=== PATIENT | female | born 2000 | race Caucasian/White ===

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

== ENCOUNTER 2020-07-30 19:11 | Emergency (ER) | payer OTHER, SELFPAY ==
[2020-07-30 19:15] VITALS: BP 115/72; PULSE 88; RESP 18; TEMP 36.6; O2SAT 99
--- NOTE | 2020-07-30 19:21 | ED.ABDPAIN ---
HPI - Abdominal Pain General Chief Complaint: Nausea/Vomiting/Diarrhea Stated Complaint: abdo pain nausea Time Seen by Provider: 07/30/20 19:21 Source: patient and RN notes reviewed Mode of arrival: ambulatory Limitations: no limitations History of Present Illness HPI narrative: 20-year-old female presents to the [facility] with 2 days of intermittent nausea and suprapubic abdominal pain. Patient states that she has had diarrhea and abdominal pain since she was approximately 16 years old, states her mom is supposed to have her follow-up with a GI doctor but they have not done so in the last 4 years. Denies any pain at this time. Denies any urinary symptoms. Denies any chance of . Related Data Home Medications Medication Instructions Recorded Confirmed buspirone 5 mg PO DAILY 07/30/20 07/30/20 propranolol 10 mg PO BID 07/30/20 07/30/20 Allergies Allergy/AdvReac Type Severity Reaction Status Date / Time No Known Allergies Allergy Verified 05/01/19 16:20 Review of Systems Review of Systems: All systems reviewed & are unremarkable except as noted in HPI and below Constitutional: Constitutional: Reports no additional constitutional complaints, Denies chills and Denies fever(s) Eyes: Eyes: Reports no additional eye complaints ENT: Reports system reviewed and no additional complaints, except as documented Cardiovascular: Cardiovascular: Reports no additional cardiovascular complaints and Denies chest pain Respiratory: Respiratory: Reports no additional respiratory complaints, Denies cough and Denies dyspnea Gastrointestinal: Gastrointestinal: Reports as per HPI, Reports abdominal pain (Generalized, suprapubic), Reports diarrhea (Chronic for 4 years) and Reports nausea Genitourinary: Genitourinary: Reports no additional female genitourinary complaints, Denies nocturia, Denies dysuria, Denies pelvic pain, Denies flank pain, Denies urinary incontinence and Denies vaginal discharge Musculoskeletal: Musculoskeletal: Reports no additional musculoskeletal complaints and Denies back pain Integumentary/Breasts: Skin/Breast: Reports system reviewed and no additional complaints, except as docu and Denies rash Neurologic: Reports system reviewed and no additional complaints, except as documented Psychiatric: Psychiatric: Reports no additional psychiatric complaints [facility] Family History Family History Other Ovarian cyst PCOS (polycystic ovarian syndrome) Comments At the time of my signature, I reviewed and agree with the nursing past medical, surgical, social, and family history. There is no relevant family history pertinent to the patient complaint. Exam Const: General: healthy appearing, no acute distress and alert Nutritional Appearance: well nourished and obese morbidly obese Orientation/consciousness: patient oriented x3 Limitations: no limitations HENMT: Head: normal to inspection Ears: external ears normal Eyes: Pupils: Equal, round and reactive pupils present Neck: Neck: normal visual inspection and no lymphadenopathy Chest: Chest palpation & inspection: normal inspection of the chest Resp: Effort & Inspection: normal respiratory effort and no use of accessory muscles Auscultation: clear to auscultation bilaterally, no crackles, no rales, no rhonchi and no wheezes Cardio: Rate: regular rate Rhythm: regular rhythm GI: GI Palp: Yes Soft to palpation, No Tenderness to palpation present (GI), No Guarding due to palpation present (GI) and No Rebound tenderness present Auscultation: normal bowel sounds : General: Yes no CVA tenderness Back/Spine/Pelvis: Back: no CVA tenderness Skin: General skin exam: normal color Rashes: no rashes Neuro: General: patient oriented x3, moves all extremities, no meningeal signs and no focal motor deficits Speech: normal speech Gait exam (Neuro): Normal gait present Extrem: General: normal to inspection and
== END 2020-07-30 19:45 | disposition home or self-care (01) ==
PROVIDERS: Emergency Provider Nurse Practitioner
DX: R10.9 Unspecified abdominal pain (principal); E73.9 Lactose intolerance, unspecified; F32.9 Major depressive disorder, single episode, unspecified
CPT/HCPCS: 81003; 81025; 99213; G0463

== ENCOUNTER 2021-03-22 17:59 | Emergency (ER) | payer OTHER, MEDICAID, SELFPAY ==
[2021-03-22 18:18] VITALS: BP 141/88; PULSE 110; RESP 16; TEMP 37.3; O2SAT 98
--- NOTE | 2021-03-22 18:30 | ED.URI ---
HPI - URI/Sore Throat General Chief Complaint: Upper Respiratory Infection Stated Complaint: Sore throat/dizziness/fever/bodyaches Time Seen by Provider: 03/22/21 18:31 Source: patient and family History of Present Illness HPI Narrative: POSITIVE FOR COVID ON 03/06/21. PRESENTS WITH SORE THROAT DIZZY AT TIMES GENERALIZED BODY ACHES. NO SHORTNESS OF BREATH AND NO CHEST PAIN. MD elicited complaint: fever, sore throat and nasal congestion Related Data Home Medications Medication Instructions Recorded Confirmed paliperidone 9 mg PO DAILY 03/22/21 03/22/21 Allergies Allergy/AdvReac Type Severity Reaction Status Date / Time No Known Allergies Allergy Verified 05/01/19 16:20 Review of Systems Review of Systems: CONSTITUTIONAL: Denies chills, or sweats. Reports fever and generalized body aches EYES: Denies visual changes, redness, or discharge. ENT: Denies otalgia. Reports nasal congestion runny nose and sore throat CARDIOVASCULAR: Denies chest pain, palpitations, or edema. RESPIRATORY: Denies dyspnea. Reports occasional cough GASTROINTESTINAL: Denies abdominal pain, nausea, vomiting, or diarrhea. GENITOURINARY: Denies dysuria or hematuria. SKIN: Denies rash or itching. MUSCULOSKELETAL: Denies back pain, joint pain, or myalgia. Reports generalized body aches NEUROLOGIC: Denies headache, numbness, or weakness. PSYCHIATRIC: Denies anxiety or depression. [facility] Family History Family History Other Ovarian cyst PCOS (polycystic ovarian syndrome) Comments At time of signature, agree with nursing past medical, surgical, social and family history. There is no relevant family history pertinent to the presenting complaint Exam Narrative: The patient is a well-developed, well-nourished in no acute distress. SKIN: Skin is warm and dry without erythema, swelling or exudate. There is good turgor. No tenting. HEAD: Atraumatic. Normocephalic. No temporal or scalp tenderness. EYES: Moist and bright. Sclera and conjunctivae normal. No discharge. PERRLA. Extraocular motions intact. Gross visual acuity intact. EARS: Pinna is normal shape and contour. Clear external auditory canals. TM pearly bhatt with good cone of light, no erythema or suppuration. Bilateral cerumen noted no gross hearing deficit. NOSE: pink, moist mucosa with good air movement. Clear rhinorrhea without nasal flaring. Septum midline. Mouth: moist mucous membranes. THROAT; mild erythema noted to posterior oropharynx with moderate postnasal drainage. Without exudate or ulceration.. Uvula midline. Normal movement of soft palate. NECK: Supple and nontender with full range of motion without discomfort. No meningeal signs. LUNGS: Equal and bilateral breath sounds without wheezes, rales or rhonchi. CHEST: The chest wall is without retractions or use of accessory muscles. HEART: Has a regular rate and rhythm without murmur, gallops, click or rub. ABDOMEN: Soft, nontender with positive active bowel sounds. No rebound tenderness. EXTREMITIES: Without cyanosis, clubbing or edema. Equal 2+ distal pulses and 2 second capillary refill noted. NEUROLOGIC: alert, active, . The patient moves all extremities with normal muscle strength. Normal muscle tone is noted. Normal coordination is noted. NO focal neurological findings noted. Course Course Level of Care: Express Care Visit Vital Signs Vital signs: Vital Signs Temperature 37.3 C 03/22/21 18:18 Pulse Rate 110 H 03/22/21 18:18 Respiratory Rate 16 03/22/21 18:18 Blood Pressure 141/88 H 03/22/21 18:18 Pulse Oximetry 98 03/22/21 18:18 Temperature 37.3 C 03/22/21 18:18 Pulse Rate 110 H 03/22/21 18:18 Respiratory Rate 16 03/22/21 18:18 Blood Pressure 141/88 H 03/22/21 18:18 Pulse Oximetry 98 03/22/21 18:18 Please HILDA schedule a followup visit with your personal physician for further evaluation and treatment. Including recheck and discussion of your b
== END 2021-03-22 18:52 | disposition home or self-care (01) ==
PROVIDERS: Emergency Provider Nurse Practitioner Family
DX: J06.9 Acute upper respiratory infection, unspecified (principal); B34.9 Viral infection, unspecified; J02.9 Acute pharyngitis, unspecified; Z86.16 Personal history of COVID-19; E73.9 Lactose intolerance, unspecified
CPT/HCPCS: 87081; 87804; 87880; 99213; G0463

== ENCOUNTER 2021-03-28 08:46 | Emergency (ER) | payer OTHER, MEDICAID, SELFPAY ==
--- NOTE | 2021-03-28 08:49 | ED.NAVMDI ---
HPI - Nausea/Vomiting/Diarrhea General Stated complaint: abdo pain and diarrhea Time Seen by Provider: 03/28/21 08:50 Source: patient and RN notes reviewed History of Present Illness HPI Narrative: Patient is a 20-year-old female who presents the urgent care with complaints of abdominal cramping, diarrhea, nausea and vomiting. Patient states that started 4 days ago and she has been taking [id number] antidiarrheal medication without much improvement. Patient states that she has been able to keep down water but has not been eating much. Patient states her last meal was hamburger helper from the food pantry and the other people in her family who ate the meal are also symptomatic. Denies of any fevers. Currently denies any abdominal pain. Patient states she has had GI issues for a long time with intermittent diarrhea. Patient has followed up with a GI doctor in the past. No other acute complaints. No acute distress noted. Patient aware of the plan of care. Some parts of this dictation were generated by voice recognition software and may contain typographical and/or grammatical inaccuracies. Related Data Home Medications Medication Instructions Recorded Confirmed paliperidone 9 mg PO DAILY 03/22/21 03/22/21 Allergies Allergy/AdvReac Type Severity Reaction Status Date / Time No Known Allergies Allergy Verified 05/01/19 16:20 Review of Systems Review of Systems: CONSTITUTIONAL: Denies fever, chills, or sweats. EYES: Denies visual changes, redness, or discharge. ENT: Denies rhinorrhea, congestion, sore throat, or otalgia. CARDIOVASCULAR: Denies chest pain, palpitations, or edema. RESPIRATORY: Denies cough or dyspnea. GASTROINTESTINAL: Reports of nausea, vomiting, diarrhea and intermittent abdominal cramping GENITOURINARY: Denies dysuria or hematuria. SKIN: Denies rash or itching. MUSCULOSKELETAL: Denies back pain, joint pain, or myalgia. NEUROLOGIC: Denies headache, numbness, or weakness. All other systems reviewed are negative, except as documented in HPI. [facility] Family History Family History Other Ovarian cyst PCOS (polycystic ovarian syndrome) Comments At the time of my signature, I reviewed and agree with the nursing past medical, surgical, social, and family history. There is no relevant family history pertinent to the patient complaint. Exam Narrative: GENERAL: This is a well-nourished, well-developed patient, in no apparent distress. HEAD: normocephalic, atraumatic. EYES: PERRL. Sclera clear/white. Vision is grossly intact. EARS: External ears normal NOSE: External nose normal with no obvious nasal discharge, nares without redness, no rhinorrhea. THROAT: Mucous membranes moist NECK: Neck supple CARDIOVASCULAR: Regular rate and rhythm without murmurs, gallops, or rubs. RESPIRATORY: Clear to auscultation. Breath sounds equal bilaterally. No wheezes, rales, or rhonchi. GASTROINTESTINAL: Abdomen soft, mild diffuse tenderness , nondistended. Bowel sounds are hyper active. No hepato-splenomegaly, or palpable masses. No guarding. SKIN: warm, intact with no suspicious lesions or rash, good texture and turgor. NEURO: awake, alert, and oriented to person, place and time. There were no obvious focal neurologic abnormalities. EXTREMITIES: No clubbing, cyanosis, or edema. Course Course Level of Care: Express Care Visit Vital Signs Vital signs: Vital Signs Temperature 97.8 F 03/28/21 09:15 Pulse Rate 87 03/28/21 09:15 Respiratory Rate 18 03/28/21 09:15 Blood Pressure 110/75 03/28/21 09:15 Pulse Oximetry 99 03/28/21 09:15 Temperature 97.8 F 03/28/21 09:15 Pulse Rate 87 03/28/21 09:15 Respiratory Rate 18 03/28/21 09:15 Blood Pressure 110/75 03/28/21 09:15 Pulse Oximetry 99 03/28/21 09:15 Reviewed MDM - Nausea/Vomiting/Diarrhea MDM Narrative Medical decision making narrative: Advised patient to use the Zofran as needed
[2021-03-28 09:15] VITALS: BP 110/75; PULSE 87; RESP 18; TEMP 36.6; O2SAT 99
== END 2021-03-28 09:35 | disposition home or self-care (01) ==
PROVIDERS: Emergency Provider Nurse Practitioner Family
DX: K52.9 Noninfective gastroenteritis and colitis, unspecified (principal); Z86.16 Personal history of COVID-19
CPT/HCPCS: 99213; G0463

== ENCOUNTER 2021-06-02 18:19 | Emergency (ER) | payer OTHER, MEDICAID, SELFPAY ==
[2021-06-02 18:25] VITALS: BP 130/77; PULSE 91; RESP 20; TEMP 36.8; O2SAT 99
--- NOTE | 2021-06-02 18:26 | ED.GENADULT ---
HPI - General Adult General Chief complaint: Dizziness Stated complaint: sweats lightheaded shaking Time Seen by Provider: 06/02/21 18:20 Source: patient, family and RN notes reviewed History of Present Illness HPI narrative: Patient is a 21-year-old female who presents the urgent care with her mother with complaints of lightheadedness, dizziness, and shaking. 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 Patient states that she does have normal abdominal issues and had her normal episode of nausea and vomiting this morning but felt fine. Patient states she is on a new sleep schedule with her new job and just feels very fatigued and exhausted . Patient states that her job is very stressful and seems to exacerbate her anxiety. No other acute complaints. No acute distress noted. Patient aware of the plan of care. Some parts of this dictation were generated by voice recognition software and may contain typographical and/or grammatical inaccuracies. Related Data Home Medications Medication Instructions Recorded Confirmed paliperidone 9 mg PO DAILY 03/22/21 03/28/21 Allergies Allergy/AdvReac Type Severity Reaction Status Date / Time No Known Allergies Allergy Verified 06/02/21 18:43 Review of Systems Review of Systems: CONSTITUTIONAL: Denies fever, chills, or sweats. EYES: Denies visual changes, redness, or discharge. ENT: Denies rhinorrhea, congestion, sore throat, or otalgia. CARDIOVASCULAR: Denies chest pain, palpitations, or edema. RESPIRATORY: Denies cough or dyspnea. GASTROINTESTINAL: Denies abdominal pain, nausea, vomiting, or diarrhea. GENITOURINARY: Denies dysuria or hematuria. SKIN: Denies rash or itching. MUSCULOSKELETAL: Denies back pain, joint pain, or myalgia. NEUROLOGIC: Denies headache, numbness, or weakness. Currently denies of any dizziness or lightheadedness All other systems reviewed are negative, except as documented in HPI. [facility] Family History Family History Other Ovarian cyst PCOS (polycystic ovarian syndrome) Comments At the time of my signature, I reviewed and agree with the nursing past medical, surgical, social, and family history. There is no relevant family history pertinent to the patient complaint. Exam Narrative: GENERAL: This is a well-nourished, well-developed patient. Patient speaking very fast with increased anxiety HEAD: normocephalic, atraumatic. EYES: PERRL. Sclera clear/white. Vision is grossly intact. EARS: External ears normal, auditory canals clear and without drainage, TMs normal without perforation. Hearing grossly intact. NOSE: External nose normal with no obvious nasal discharge, nares without redness, no rhinorrhea. THROAT: Mucous membranes moist, posterior pharynx clear. NECK: Neck supple, non-tender without lymphadenopathy, masses or thyromegaly. CARDIOVASCULAR: Regular rate and rhythm without murmurs, gallops, or rubs. RESPIRATORY: Clear to auscultation. Breath sounds equal bilaterally. No wheezes, rales, or rhonchi. SKIN: warm, intact with no suspicious lesions or rash, good texture and turgor. NEURO: awake, alert, and oriented to person, place and time. There were no obvious focal neurologic abnormalities. EXTREMITIES: No clubbing, cyanosis, or edema. Course Course Level of Care: Express Care Visit Vital Signs Vital signs: Vital Signs Temperature 98.2 F 06/02/21 18:25 Pulse Rate 91 06/02/21 18:25 Respiratory Rate 20 06/02/21 18:25 Blood Pressure 130/77 06/02/21 18:25 Pulse Oximetry 99 06/02/21 18:25 Temperature 98.2 F 06/02/21 18:25 Pulse Rate 91 06/02/21 18:25 Respiratory Rate 20 06/02/21 18:25 Blood Pressure 130/77 06/02/21 18:25 Pulse Oximetry 99 06/02/21 18:25 Reviewed Medical Decision Wilver
[2021-06-02 18:40] LABS: Glucose Point of Care 118 mg/dl (65-105)
== END 2021-06-02 18:55 | disposition home or self-care (01) ==
PROVIDERS: Emergency Provider Nurse Practitioner Family
DX: F43.0 Acute stress reaction (principal); Z86.16 Personal history of COVID-19; E73.9 Lactose intolerance, unspecified; F31.9 Bipolar disorder, unspecified
CPT/HCPCS: 82948; 87804; 99213; G0463

== ENCOUNTER 2021-12-11 08:53 | Emergency (ER) | payer OTHER, MEDICAID, SELFPAY ==
[2021-12-11 09:00] VITALS: BP 132/83; PULSE 85; RESP 20; TEMP 36.4; O2SAT 100
--- NOTE | 2021-12-11 09:07 | ED.BACK ---
HPI - Back Pain/Injury General Chief Complaint: Back Pain/Injury Stated Complaint: Back Injury Time Seen by Provider: 12/11/21 09:09 Source: patient Mode of arrival: ambulatory Limitations: no limitations History of Present Illness HPI Narrative: 21 y/o female presented for c/o back pain for 4 days, states she threw her back out while taking off her pants. States that the time her body went numb and she fell face first, and has needed help getting dressed and getting on and off the toilet since the onset. Currently denies numbness, tingling, weakness of the lower extremities, saddle paresthesia, or incontinence of bowel or bladder. She endorses not having a PCP or [facility]. Of note she states she does not know LMP due to daily bleeding for 2 years. Emergency room the day of injury, states x-rays were negative. She endorses a history of lumbar fusion for scoliosis in 2016, was told the hardware was in place. Patient states she started to feel better for 2 days and then she started taking a muscle relaxer which caused the pain to worsen. She states Tylenol and ibuprofen did not help the pain. Related Data Home Medications Medication Instructions Recorded Confirmed cyclobenzaprine 10 mg tablet 10 mg PO TID PRN Muscle Spasm 12/11/21 12/11/21 etonogestrel 68 mg subdermal 1 implant subdermal ONCE 12/11/21 12/11/21 implant (Nexplanon) paliperidone 6 mg tablet,extended 6 mg PO DAILY 12/11/21 12/11/21 release 24 hr Allergies Allergy/AdvReac Type Severity Reaction Status Date / Time No Known Allergies Allergy Verified 12/11/21 09:12 Review of Systems Review of Systems: CONSTITUTIONAL: Denies body aches, fever, chills EYES: Denies visual changes CARDIOVASCULAR: Denies chest pain, palpitations, or edema. RESPIRATORY: Denies cough or dyspnea. GASTROINTESTINAL: Denies abdominal pain, nausea, vomiting, or diarrhea. SKIN: Denies rash, itching, or wounds. MUSCULOSKELETAL: reports back pain NEUROLOGIC: Denies headache, numbness, tingling, or weakness. All systems reviewed & are unremarkable except as noted in HPI and below PMFSH Family History Family History Other Ovarian cyst PCOS (polycystic ovarian syndrome) Comments At time of signature, I have reviewed and agree with nursing past medical, surgical, social and family history unless otherwise noted. Please see nursing chart for further information. There is no relevant family history pertinent to the presenting complaint Exam Narrative: GENERAL: Well-appearing, in no acute distress. EYES: conjunctivae clear NECK: Supple. full ROM CHEST: Speaks in full sentences. No respiratory distress. HEART: Regular rate and rhythm. Normal and equal peripheral pulses. MUSC: No Vertebral point tenderness or step-off. Midline lumbar scar. BLEs with normal strength and sensation, normal range of motion; endorses pain to lower back radiating to bilateral hips with movement. No open wounds bruising or obvious deformity; alignment normal, pulse palpable and equal bilaterally, skin warm, dry, pink. Capillary refill less than 3 seconds. Gait steady. SKIN: Warm, dry, no rash. NEURO: Alert and oriented x3. Course Course Emergency Course: Patient is aware of diagnosis, understands and agrees to treatment plan. Anticipatory guidance given. Patient agrees to follow-up as directed and is aware of reasons to seek care at the emergency department. Portions of this record may have been created with voice recognition software Level of Care: Express Care Visit Vital Signs Vital signs: Vital Signs Temperature 97.6 F 12/11/21 09:00 Pulse Rate 85 12/11/21 09:00 Respiratory Rate 20 12/11/21 09:00 Blood Pressure 132/83 12/11/21 09:00 Pulse Oximetry 100 12/11/21 09:00 Oxygen Delivery Room Air 12/11/21 09:00 Temperature 97.6 F 12/11/21 09:00 Pulse Rate 85 12/11/21 09:00 Respiratory Rate 20
== END 2021-12-11 09:32 | disposition home or self-care (01) ==
PROVIDERS: Emergency Provider Nurse Practitioner Family
DX: M54.50 Low back pain, unspecified (principal); Z86.16 Personal history of COVID-19
CPT/HCPCS: 99213; G0463

== ENCOUNTER 2021-12-19 09:10 | Emergency (ER) | payer OTHER, MEDICAID, SELFPAY ==
[2021-12-19 09:25] VITALS: BP 141/89; PULSE 96; RESP 18; TEMP 36.4; O2SAT 100
--- NOTE | 2021-12-19 09:58 | ED.GENADULT ---
HPI - General Adult General Chief complaint: Back Pain/Injury Stated complaint: Back Pain Source: patient Mode of arrival: ambulatory Limitations: no limitations History of Present Illness HPI narrative: Patient presents requesting a note to return to work. She indicates she experienced pain after changing clothes on 12/07/21. She was seen in the ER on 12/07/21 and had an x ray which was negative. A prescription for muscle relaxers. She states the medication was not effective. She was seen in the [facility] on 12/11/21. She states she was given a script for oral steroids. She took the medication as directed and had complete resolution of her symptoms after one day of medication. She has a hx of scoliosis and underwent lumbar spinal fusion in the past. 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 Related Data Home Medications Medication Instructions Recorded Confirmed etonogestrel 68 mg subdermal 1 implant subdermal ONCE 12/11/21 12/19/21 implant (Nexplanon) paliperidone 6 mg tablet,extended 6 mg PO DAILY 12/11/21 12/19/21 release 24 hr Allergies Allergy/AdvReac Type Severity Reaction Status Date / Time No Known Allergies Allergy Verified 12/19/21 09:41 Review of Systems Review of Systems: CONSTITUTIONAL: Denies fever, chills, or sweats. EYES: Denies visual changes, redness, or discharge. ENT: Denies rhinorrhea, congestion, sore throat, or otalgia. CARDIOVASCULAR: Denies chest pain, palpitations, or edema. RESPIRATORY: Denies cough or dyspnea. GASTROINTESTINAL: Denies abdominal pain, nausea, vomiting, or diarrhea. GENITOURINARY: Denies dysuria or hematuria. SKIN: Denies rash or itching. MUSCULOSKELETAL: Reports recent low back pain, none currently. Denies joint pain, or myalgia. NEUROLOGIC: Denies headache, numbness, dizziness, or weakness. PSYCHIATRIC: Denies anxiety or depression. [facility] Past Medical History Medical History Scoliosis Surgical History Surgical History History of lumbar spinal fusion Family History Family History Mother Family history non-contributory Other Ovarian cyst PCOS (polycystic ovarian syndrome) Social History Social History Gender identity (if verbalized by the patient): Female Spiritual care concerns: No Exam Narrative: GENERAL: Well-appearing, well-nourished, and in no acute distress. HEAD: Normocephalic, atraumatic. EYES: PERRLA and EOMI. ENT: Nares clear, no rhinorrhea or epistaxis. Mucous membranes moist. Oropharynx without tonsillar hypertrophy exudate or other lesions. Bilateral TMs pearly hernandez nonbulging NECK: Supple. No adenopathy or masses. No carotid bruits or JVD CHEST: Clear to auscultation. No respiratory distress. No wheezes rales or rhonchi HEART: Regular rate and rhythm. No murmur heard. Normal peripheral pulses. ABDOMEN: Soft, nontender, nondistended, normal active bowel sounds. EXTREMITIES: Normal range of motion. No edema. SKIN: Warm, dry, no rash. NEURO: No focal deficits. Alert and oriented x3. PSYCH: Normal mood and affect. Course Course Emergency Course: This is a 21-year-old female who presented requesting a note to return to work. She has no pain whatsoever. She is smiling and laughing in the room. Work note provided. Advised follow up with primary. Go to ER for intractable pain, bladder/bowel incontinence. Pt in agreement with plan of care. Level of Care: Express Care Visit Vital Signs Vital signs: Vital Signs Temperature 36.4 C 12/19/21 09:25 Pulse Rate 96 12/19/21 09:25 Respiratory Rate 18 12/19/21 09:25 Blood Pressure 141/89 H 12/19/21 09:25 Pulse Oximetry 100 12/19/21 09:25 Oxygen Delivery Room Air 1
== END 2021-12-19 10:00 | disposition home or self-care (01) ==
PROVIDERS: Emergency Provider Nurse Practitioner
DX: S39.012D Strain of muscle, fascia and tendon of lower back, subsequent encounter (principal); X58.XXXD Exposure to other specified factors, subsequent encounter; M41.9 Scoliosis, unspecified
CPT/HCPCS: 99212; G0463

== ENCOUNTER 2022-02-24 14:28 | Emergency (ER) | payer OTHER, MEDICAID, SELFPAY ==
[2022-02-24 14:39] VITALS: BP 134/102; PULSE 99; RESP 20; TEMP 36.8; O2SAT 100
--- NOTE | 2022-02-24 15:36 | ED.GENADULT ---
HPI - General Adult General Chief complaint: Upper Respiratory Infection Stated complaint: cold flu Source: patient Mode of arrival: ambulatory Limitations: no limitations History of Present Illness HPI narrative: Patient presents for evaluation of sick symptoms. She indicates she has had diarrhea on and off for the last 3-4 weeks. She does get some abdominal cramping nocturnally but states during the day she has no pain whatsoever. She denies any blood or mucus in the stool. No recent antibiotics. No new foods. No out of country travel. She has experienced a fever with reported temperature of 103 but that was an isolated occurrence. She had bilateral ear pain at that time but her pain has resolved. She reports postnasal drainage. She denies any cough, sore throat, shortness of breath. Several members in her family have been sick recently with influenza. She does smoke marijuana and an electronic cigarette. She established care with a new primary in the past week or so. She states that no testing was ordered regarding her symptoms as she was feeling well on the day of her evaluation. Related Data Home Medications Medication Instructions Recorded Confirmed etonogestrel 68 mg subdermal 1 implant subdermal ONCE 12/11/21 02/24/22 implant (Nexplanon) paliperidone 6 mg tablet,extended 6 mg PO DAILY 12/11/21 02/24/22 release 24 hr Allergies Allergy/AdvReac Type Severity Reaction Status Date / Time No Known Allergies Allergy Verified 12/19/21 09:41 Review of Systems Review of Systems: CONSTITUTIONAL: Denies fever, chills, or sweats. EYES: Denies visual changes, redness, or discharge. ENT: Reports postnasal drainage. Reports recent ear pain, now resolved. Denies congestion, sore throat, or otalgia. CARDIOVASCULAR: Denies chest pain, palpitations, or edema. RESPIRATORY: Denies cough or dyspnea. GASTROINTESTINAL: Reports diarrhea. Reports nocturnal abdominal cramping, but denies otherwise. Denies abdominal pain per se, nausea, vomiting. GENITOURINARY: Denies dysuria or hematuria. SKIN: Denies rash or itching. MUSCULOSKELETAL: Denies back pain, joint pain, or myalgia. NEUROLOGIC: Denies headache, numbness, dizziness, or weakness. PSYCHIATRIC: Denies anxiety or depression. [facility] Past Medical History Medical History (Updated 02/24/22 @ 16:08 by Mirza Riley, [facility], ) Diarrhea Scoliosis Surgical History Surgical History History of lumbar spinal fusion Family History Family History Mother Family history non-contributory Other Ovarian cyst PCOS (polycystic ovarian syndrome) Social History Social History (Updated 02/24/22 @ 15:41 by JEREL Sands, ) Smoking status: Current every day smoker Tobacco type: e-cigarettes/vaping Alcohol intake: current Alcohol use details: social Living arrangements: with family Gender identity (if verbalized by the patient): Female Spiritual care concerns: No Exam Narrative: GENERAL: Well-appearing, well-nourished, and in no acute distress. HEAD: Normocephalic, atraumatic. EYES: PERRLA and EOMI. ENT: Nares clear, no rhinorrhea or epistaxis. Mucous membranes moist. Oropharynx without tonsillar hypertrophy exudate or other lesions. Bilateral TMs pearly hernandez nonbulging NECK: Supple. No adenopathy or masses. No carotid bruits or JVD CHEST: Clear to auscultation. No respiratory distress. No wheezes rales or rhonchi HEART: Regular rate and rhythm. No murmur heard. Normal peripheral pulses. ABDOMEN: Soft, nontender, nondistended, normal active bowel sounds. EXTREMITIES: Normal range of motion. No edema. SKIN: Warm, dry, no rash. NEURO: No focal deficits. Alert and oriented x3. PSYCH: Normal mood and affect. Course Course Emergency Course: This is a 21-year-old female who presented for evaluation of diarrhea.
== END 2022-02-24 16:18 | disposition home or self-care (01) ==
PROVIDERS: Emergency Provider Nurse Practitioner; PCP Nurse Practitioner Family
DX: R19.7 Diarrhea, unspecified (principal); M41.9 Scoliosis, unspecified; F17.290 Nicotine dependence, other tobacco product, uncomplicated
CPT/HCPCS: 87804; 99213; G0463

== ENCOUNTER 2022-03-09 10:14 | Emergency (ER) | payer OTHER, MEDICAID, SELFPAY ==
[2022-03-09 10:19] VITALS: BP 142/69; PULSE 120; RESP 16; TEMP 36.7; O2SAT 99
--- NOTE | 2022-03-09 10:22 | ED.URI ---
HPI - URI/Sore Throat General Chief Complaint: Upper Respiratory Infection Stated Complaint: Sore Throat/Cough Time Seen by Provider: 03/09/22 10:22 Source: patient Mode of arrival: ambulatory Limitations: no limitations History of Present Illness HPI Narrative: Yogi is a 21-year-old female patient presenting to clinic today with complaints of sore throat , cough, body aches, chills, nausea, vomiting since 10:00 last night. She reports she has had exposure to her sister who have tested positive for influenza yesterday. MD elicited complaint: sore throat and nasal congestion Related Data Home Medications Medication Instructions Recorded Confirmed etonogestrel 68 mg subdermal 1 implant subdermal ONCE 12/11/21 03/09/22 implant (Nexplanon) paliperidone 6 mg tablet,extended 6 mg PO DAILY 12/11/21 03/09/22 release 24 hr Allergies Allergy/AdvReac Type Severity Reaction Status Date / Time No Known Allergies Allergy Verified 12/19/21 09:41 Review of Systems Review of Systems: Pertinent positives per HPI. Patient denies any rash, headache, visual changes, dizziness, shortness of breath, chest pain, palpitations, diarrhea, constipation, abdominal pain, or any urinary issues. [facility] Past Medical History Medical History Diarrhea Scoliosis Surgical History Surgical History History of lumbar spinal fusion Family History Family History Mother Family history non-contributory Other Ovarian cyst PCOS (polycystic ovarian syndrome) Social History Social History Smoking status: Current every day smoker Tobacco type: e-cigarettes/vaping Alcohol intake: current Alcohol use details: social Gender identity (if verbalized by the patient): Female Spiritual care concerns: No Comments At the time of my signature, I reviewed and agree with the nursing past medical, surgical, social, and family history. There is no relevant family history pertinent to the patient complaint. Exam Narrative: General: Well-developed, obese, in no apparent distress Head: Normocephalic, atraumatic Eyes: Pupils equally round and reactive to light bilaterally, EOM intact, sclera and conjunctive clear, no discharge, lids normal Ears: TMs intact and clear, ear canals clear, no drainage, grossly hearing normal. Nose: Nares patent, clear nasal discharge, no inflammation, no sinus tenderness. Mouth: Oral pharynx without lesions or masses, good dentition, MMM. oropharynx red, postnasal drip Neck: Supple, trachea midline, no enlargement of anterior or posterior cervical nodes, no thyroid masses or goiter palpable. Cardio: Regular rate and rhythm, s1 and s2 normal, no murmur appreciated. Resp: Clear to auscultation bilaterally, no rhonchi, rales, wheezing or rubs Course Course Emergency Course: Portions of this record may have been created with voice recognition software. Level of Care: Express Care Visit Vital Signs Vital signs: Vital Signs Temperature 36.7 C 03/09/22 10:19 Pulse Rate 120 H 03/09/22 10:19 Respiratory Rate 16 03/09/22 10:19 Blood Pressure 142/69 H 03/09/22 10:19 Pulse Oximetry 99 03/09/22 10:19 Oxygen Delivery Room Air 03/09/22 10:19 Temperature 36.7 C 03/09/22 10:19 Pulse Rate 120 H 03/09/22 10:19 Respiratory Rate 16 03/09/22 10:19 Blood Pressure 142/69 H 03/09/22 10:19 Pulse Oximetry 99 03/09/22 10:19 Oxygen Delivery Room Air 03/09/22 10:19 Vital signs reviewed MDM - URI/Sore Throat MDM Narrative Medical decision making narrative: At the time of visit patient is resting comfortably on exam table. Influenza testing was completed in the clinic and was negative. I suspect the patient has upper respiratory
== END 2022-03-09 10:50 | disposition home or self-care (01) ==
PROVIDERS: Emergency Provider Nurse Practitioner Family; PCP Nurse Practitioner Family
DX: J11.1 Influenza due to unidentified influenza virus with other respiratory manifestations (principal); F17.290 Nicotine dependence, other tobacco product, uncomplicated; M41.9 Scoliosis, unspecified
CPT/HCPCS: 87804; 99213; G0463

== ENCOUNTER 2023-09-29 15:25 | Emergency (ER) | payer OTHER, SELFPAY ==
[2023-09-29 15:33] VITALS: BP 133/82; PULSE 86; RESP 16; TEMP 36.4; O2SAT 99
--- NOTE | 2023-09-29 15:43 | PC.NURSE ---
in br to obtain ua spec.
--- NOTE | 2023-09-29 16:17 | ED.GENADULT ---
HPI - General Adult General Chief complaint: Urogenital-Female Stated complaint: Vaginal Issue Source: patient Mode of arrival: ambulatory Limitations: no limitations History of Present Illness HPI narrative: Patient presents for evaluation of pelvic pain and vaginal bleeding. She indicates she had unprotected vaginal intercourse 10 days ago. Two days ago she woke up from sleep with blood in her bed. She indicates she has not had a menstruated in 7 months. She has a history of irregular menstruation. She reports a history of ovarian cysts. Yesterday around noon she started developing pelvic pain. Pain is intermittent, occurring a few times per day and lasting several minutes. She rates the pain 6/10 severity describes it as cramping. No fever, chills, nausea, vomiting, urinary symptoms. She reports a clear vaginal discharge. Related Data Home Medications Medication Instructions Recorded Confirmed etonogestrel 68 mg subdermal 1 implant subdermal ONCE 12/11/21 03/09/22 implant (Nexplanon) paliperidone 6 mg tablet,extended 6 mg PO DAILY 12/11/21 03/09/22 release 24 hr Allergies Allergy/AdvReac Type Severity Reaction Status Date / Time No Known Allergies Allergy Verified 09/29/23 15:29 Review of Systems Review of Systems: CONSTITUTIONAL: Denies fever, chills, or sweats. EYES: Denies visual changes, redness, or discharge. ENT: Denies rhinorrhea, congestion, sore throat, or otalgia. CARDIOVASCULAR: Denies chest pain, palpitations, or edema. RESPIRATORY: Denies cough or dyspnea. GASTROINTESTINAL: Denies abdominal pain, nausea, vomiting, or diarrhea. GENITOURINARY: Reports pelvic pain. Reports vaginal discharge and bleeding. Denies urinary symptoms. SKIN: Denies rash or itching. MUSCULOSKELETAL: Denies back pain, joint pain, or myalgia. NEUROLOGIC: Denies headache, numbness, dizziness, or weakness. PSYCHIATRIC: Denies anxiety or depression. [facility] Past Medical History Medical History Bipolar disorder Diarrhea Scoliosis Surgical History Surgical History History of lumbar spinal fusion Family History Family History Mother Family history non-contributory Other Ovarian cyst PCOS (polycystic ovarian syndrome) Social History Social History Smoking status: Current every day smoker Tobacco type: e-cigarettes/vaping Alcohol intake: current Alcohol use details: social Substance use: current Substance use type: marijuana Living arrangements: with family Gender identity (if verbalized by the patient): Female Spiritual care concerns: No Exam Narrative: GENERAL: Well-appearing, well-nourished, and in no acute distress. HEAD: Normocephalic, atraumatic. EYES: PERRLA and EOMI. ENT: Nares clear, no rhinorrhea or epistaxis. Mucous membranes moist. Oropharynx without tonsillar hypertrophy exudate or other lesions. Bilateral TMs pearly hernandez nonbulging NECK: Supple. No adenopathy or masses. No carotid bruits or JVD CHEST: Clear to auscultation. No respiratory distress. No wheezes rales or rhonchi HEART: Regular rate and rhythm. No murmur heard. Normal peripheral pulses. ABDOMEN: Soft, nondistended, normal active bowel sounds. There is tenderness in the right lower quadrant and suprapubic region EXTREMITIES: Normal range of motion. No edema. GENITAL: No external genital lesions. Mild left-sided adnexal tenderness. No right-sided adnexal tenderness. No cervical motion tenderness. There is a moderate amount of blood in the vaginal vault SKIN: Warm, dry, no rash. NEURO: No focal deficits. Alert and oriented x3. PSYCH: Normal mood and affect. Course Course Emergency Course: This is a 23-year-old female who presented for evaluation of
[2023-09-29 18:45] LABS: Trichomonas Vag PCR DETECTED (NOT DETECTE)
[2023-09-29 19:23] LABS: Chlamydia trachomatis DETECTED (NOT DETECTE); Neisseria gonorrhoeae PCR NOT DETECTED (NOT DETECTE)
[2023-10-02 10:04] LABS: Bacterial Vaginosis POSITIVE (NEGATIVE)
== END 2023-09-29 16:30 | disposition left against medical advice (07) ==
PROVIDERS: Emergency Provider Nurse Practitioner; PCP Nurse Practitioner Family
DX: N93.9 Abnormal uterine and vaginal bleeding, unspecified (principal); A59.9 Trichomoniasis, unspecified; A74.9 Chlamydial infection, unspecified; M41.9 Scoliosis, unspecified; F17.290 Nicotine dependence, other tobacco product, uncomplicated; F12.90 Cannabis use, unspecified, uncomplicated
CPT/HCPCS: 81003; 81025; 81513; 87491; 87591; 87661; 99214; G0463